=== PATIENT | female | born 1955 ===

== ENCOUNTER 2019-09-06 09:21 | Outpatient (CLI) | payer OTHER ==
--- NOTE | 2019-09-06 11:24 | Diagnostic Imaging Report ---
Indication: Hepatitis B, pain Technique: Jansen-scale and duplex images of the upper abdomen were obtained Comparison: none Findings: Gallbladder is unremarkable, without stones, wall thickening, nor pericholecystic fluid. Sonographic Quiñones's sign is negative. Common bile duct measures 2 mm in diameter. No intrahepatic biliary ductal dilatation. Liver demonstrates diffusely coarsened echogenicity. No surface nodularity Portal vein and hepatic veins are patent. Pancreas is unremarkable. Spleen is unremarkable. Left kidney measures 11 cm in length. Right kidney measures 9.7 cm length. Both kidneys demonstrate normal echogenicity. There is no hydronephrosis. No focal abnormality . Non-aneurysmal abdominal aorta . Impression: Diffusely coarsened hepatic echogenicity, consistent with hepatocellular disease, nonspecific as regards etiology No focal liver abnormality Negative for gallstones or dilated bile ducts Images reviewed in person with Dr. Olvera at the time of interpretation
== END 2019-09-07 11:21 | disposition home or self-care (01) ==
LOC: ULS 09:21
DX: B19.10 Unspecified viral hepatitis B without hepatic coma (principal)
CPT/HCPCS: 76700